=== PATIENT | male | born 1955 | race Caucasian/White ===

== ENCOUNTER → 2018-02-08 09:29 | Outpatient (CLI) | payer OTHER, SELFPAY ==
[2018-02-09 11:20] LABS: PSA, Free 1.14 ng/mL; PSA, Free % 15.2 % (.); PSA, Total Ultrasensitive 7.5 ng/mL (0.0-4.0)
== END ==
PROVIDERS: Family Provider Family Medicine; PCP Family Medicine; Visit Provider Nurse Practitioner Adult Health
DX: R97.20 Elevated prostate specific antigen [PSA] (principal)
CPT/HCPCS: 36415; 84153; 84154

== ENCOUNTER → 2018-04-06 13:02 | Outpatient (CLI) | payer OTHER, SELFPAY ==
--- NOTE | 2018-04-06 13:33 | RAD_ITS ---
STUDY: X-RAY - LEFT HAND REASON FOR EXAM: Male, 62 years old. Arthritis TECHNIQUE: 2 view(s) of the hand. COMPARISON: None. FINDINGS: The mid shaft of the fourth proximal phalanx is partially obscured by a ring. There are mild arthritic changes of the first interphalangeal joint and first metacarpophalangeal joint. The remaining osseous structures and articular surfaces of the left hand appear within normal limits. RAD/Hand 2 Views IMPRESSION: Mild arthritic changes of the first interphalangeal joint and first metacarpophalangeal joint. Electronically Signed: Konstantin Vega MD at 22:33 EDT , Service support ,
--- NOTE | 2018-04-06 13:33 | RAD_ITS ---
STUDY: X-RAY - RIGHT HAND REASON FOR EXAM: Male, 62 years old. Arthritis TECHNIQUE: 2 view(s) of the hand. COMPARISON: None. FINDINGS: There are mild arthritic changes of the first metacarpophalangeal joint and first interphalangeal joint. The remaining osseous structures and articular surfaces of the right hand appear within normal limits. Soft tissues are unremarkable. RAD/Hand 2 Views IMPRESSION: Mild arthritic changes of the first metacarpophalangeal joint and first interphalangeal joint. Electronically Signed: Konstantin Vega MD at 22:31 EDT , Service support ,
--- NOTE | 2018-04-06 13:34 | RAD_ITS ---
STUDY: X-RAY - LEFT FOOT CLINICAL: Male, 62 years old. Arthritis TECHNIQUE: 2 view(s) of the foot. COMPARISON: None. FINDINGS: There is minimal bunion formation of the first metatarsal head with mild hallux valgus deformity of the first metatarsophalangeal joint. There is a tiny plantar aspect calcaneal spur. Arterial calcifications are noted in the left foot and ankle. RAD/Foot 2 Views IMPRESSION: Minimal widening formation of the first metatarsal head with mild hallux valgus deformity of the first metatarsophalangeal joint. Tiny plantar aspect calcaneal spur. Arterial calcifications are noted in the left foot and ankle. The remaining osseous structures and articular surfaces of the left foot appear within normal limits. Electronically Signed: Konstantin Vega MD at 22:36 EDT , Service support ,
--- NOTE | 2018-04-06 13:34 | RAD_ITS ---
STUDY: X-RAY CHEST REASON FOR EXAM: Male, 62 years old. Dyspnea, arthritis TECHNIQUE: PA and lateral views of the chest. COMPARISON: None. FINDINGS: There is left basilar pleural reaction/fibrosis. There is no evidence of infiltrate or atelectasis. Normal size heart. Normal mediastinum and shital. Normal visualized pulmonary arteries. Normal visualized aortic arch and descending thoracic aorta. There is demineralization of the osseous structures. Normal visualized ribs, clavicles, and shoulders. There is no demonstrated abnormality of the visualized soft tissue structures of the upper abdomen. RAD/Chest PA and Lateral IMPRESSION: Left basilar pleural reaction/fibrosis. Generalized osteopenia. Electronically Signed: Konstantin Vega MD at 22:17 EDT , Service support ,
--- NOTE | 2018-04-06 13:34 | RAD_ITS ---
STUDY: X-RAY - RIGHT FOOT CLINICAL: Male, 62 years old. Arthritis TECHNIQUE: 2 view(s) of the foot. COMPARISON: None. FINDINGS: There is mild bunion formation of the first metatarsal head with mild hallux valgus deformity of the first metatarsophalangeal joint. There are mild arthritic changes of the first interphalangeal joint. The remaining osseous structures and articular surfaces of the right foot appear within normal limits. Arterial calcifications are noted in the right foot and ankle. RAD/Foot 2 Views IMPRESSION: Mild bunion formation of the first metatarsal head with mild hallux valgus deformity of the first metatarsophalangeal joint. Mild arthritic changes of the first interphalangeal joint. Electronically Signed: Konstantin Vega MD at 22:34 EDT , Service support ,
[2018-04-06 13:40] LABS: Erythrocyte Sedimentation Rate 15 mm/hr (0-20)
[2018-04-06 13:44] LABS: Absolute Lymphocyte Count 1.31 X10^3/ul (0.83-4.51); Absolute Neutrophil Count 3.7 X10^3/uL (2.0-7.7); Basophil# 0.05 X10^3/uL; Basophil% 0.8 % (0-1); Eosinophil# 0.45 X10^3/uL; Eosinophils% 7.6 % (0-5); Hematocrit 42.6 % (40-54); Hemoglobin 13.9 g/dl (13.0-16.5); Lymphocyte # 1.31 X10^3/ul (4.0); Lymphocyte % 22.1 % (19-41); Mean Corp Hgb Conc 32.6 g/gl (32-36); Mean Corpuscular Volume 88.9 fL (80-94); Mean Platelet Vol. 9.6 fl (6.2-12.0); Monocyte# 0.43 X10^3/uL; Monocyte% 7.3 % (0-10); Neutrophil # 3.67 X10^3/uL (2.7-7.7); POSITIVE COUNT NO; POSITIVE DIFFERENTIAL NO; POSITIVE MORPHOLOGY NO; Platelet Count 204 K/mm3 (150-450); RBC Distribution Width CV 13.1 % (11.6-14.6); RBC Distribution Width SD 42.1 fl (35.1-43.9); Red Blood Count 4.79 M/mm3 (4.6-6.2); White Blood Count 5.9 K/mm3 (4.4-11.0)
[2018-04-06 14:06] LABS: AST(SGOT) 18 U/L (15-37); Alanine Aminotransfer ALT/SGPT 33 U/L (16-61); Albumin, Serum 3.2 g/dL (3.2-5.0); Alkaline Phosphatase 68 U/L (45-117); Bilirubin, Direct 0.17 mg/dL (0.00-0.30); Creatinine, Serum 1.11 mg/dL (0.70-1.30); EST Glomerular Filtration Rate 72 mL/min (>60); Est Glom Filt Rate - Afr Amer 87 mL/min (>60); Globulin 3.8 g/dL (2.2-4.2); Rheumatoid Factor < 10.0 IU/mL (<15)
[2018-04-07 14:07] LABS: ANTINUCLEAR ANTIBODIES DIRECT Positive (Negative); Anti-Centromere B Ab <0.2 AI (0.0-0.9); Anti-Chromatin <0.2 AI (0.0-0.9); Anti-Jo <0.2 AI (0.0-0.9); Anti-Scleroderma-70 AB <0.2 AI (0.0-0.9); RNP Ab 0.2 AI (0.0-0.9); SJOGREN'S Anti-SS-A test 6.6 AI (0.0-0.9); SJOGREN'S Anti-SS-B test < 0.2 AI (0.0-0.9); Smith Ab <0.2 AI (0.0-0.9)
[2018-04-08 16:25] LABS: CCP IgG Antibodies > 250 units (0-19)
[2018-04-08 16:33] LABS: Anti-dsDNA Ab <1 IU/mL (0-9)
== END ==
PROVIDERS: Family Provider Family Medicine; PCP Family Medicine
DX: M05.9 Rheumatoid arthritis with rheumatoid factor, unspecified (principal); R76.0 Raised antibody titer; R06.00 Dyspnea, unspecified; Z79.899 Other long term (current) drug therapy
CPT/HCPCS: 36415; 71046; 73120; 73620; 80076; 82565; 85025; 85652; 86038; 86140; 86200; 86225; 86235; 86431

== ENCOUNTER → 2018-07-05 12:40 | Outpatient (CLI) | payer OTHER, SELFPAY ==
--- NOTE | 2018-07-05 12:47 | CT_ITS ---
STUDY: CT CHEST WITHOUT CONTRAST REASON FOR EXAM: Male, 62 years old. Rheumatoid arthritis. RADIATION DOSAGE (If Supplied By Facility): CTDIvol = ( 20.72 ) mGy, DLP = ( 669.64 ) mGycm TECHNIQUE: Transaxial imaging was performed without the administration of intravenous contrast material. Multiplanar coronal and sagittal images were reformatted. Individualized dose optimization techniques were used for this CT. COMPARISON: Chest, April 06, 2018. FINDINGS: The lungs are well-expanded. There is linear scarring at the left lung base. There is a small left pleural effusion and atelectasis. There is no demonstrated pleural abnormality. Normal heart and pericardium. There are calcifications of the coronary arteries. Normal mediastinum. Normal hilar regions. Normal unenhanced pulmonary arteries. Normal aorta arch and descending thoracic aorta. There are multi-level degenerative changes of the thoracic spine. There is hepatosplenomegaly. There are gallstones within the gallbladder. CT/Chest without Contrast IMPRESSION: 1. Small left pleural effusion with left basilar atelectasis. 2. Coronary artery calcifications. 3. Hepatosplenomegaly. 4. Degenerative changes of the thoracic spine. Electronically Signed: William Traore DO at 23:25 EST Tel [phone], Service support ,
--- OUTSIDE RECORDS SUMMARY | 2018-09-06 16:21 | XMS RPT_ITS ---
:1955 Author Organization OHIP Care Team Providers Name Role Phone Tereza Mills Attending Unavailable Tereza Mills Referring Unavailable NEVA BRIONES Primary Care Unavailable HARSH HERNANDEZ Attending Unavailable HARSH HERNANDEZ Referring Unavailable NEVA BRIONES Primary Care Unavailable HARSH HERNANDEZ Consulting Unavailable HARSH HERNANDEZ Attending Unavailable HARSH HERNANDEZ Referring Unavailable NEVA BRIONES Primary Care Unavailable CHAIM HIRSCH, DR. NEVA Saunders Attending Unavailable CHAIM HIRSCH, DR. NEVA Saunders Primary Care Unavailable HUBERT SAGE MD. Attending Unavailable CHAIM HIRSCH, DR. NEVA Saunders Primary Care Unavailable Hubert Sage Attending Unavailable PROBLEMS PROBLEMS DATE TYPE CONDITION / CODE ATTENDING STATUS SOURCE 05/19/2018 Admitting Unknown / Hubert Sage Active [facility] Medical diagnosis UNK(Unknown) [facility] [place] Repository 04/07/2018 Unknown M05.9 - Rheumatoid HARSH HERNANDEZ Active [facility] arthritis with Community rheumatoid factor, Hospital unspecified / Repository M05.9(ICD-10) 04/07/2018 Unknown Z79.899 - Other long HARSH HERNANDEZ Active [facility] term (current) drug Community therapy / Hospital Z79.899(ICD-10) Repository 04/07/2018 Unknown R76.0 - Raised HARSH HERNANDEZ Active [facility] antibody titer / Community R76.0(ICD-10) Hospital Repository 12/30/2017 Admitting Essential (primary) CHAIM HIRSCH, Active [facility] Diagnosis hypertension / DR. NEVA Stapleton I10(ICD-10) Repository 12/30/2017 Admitting Mixed hyperlipidemia CHAIM HIRSCH, Active [facility] Diagnosis / E78.2(ICD-10) DR. NEVA Stapleton Repository 12/30/2017 Admitting ELEVATED PROSTATE CHAIM HIRSCH, Active [facility] Diagnosis SPECIFIC ANTIGEN DR. NEVA Stapleton (PSA) / Repository R97.20(ICD-10) 12/30/2017 Admitting Rheumatoid CHAIM HIRSCH, Active [facility] Diagnosis arthritis, DR. NEVA Stapleton unspecified / Repository M06.9(ICD-10) PROCEDURES PROCEDURES No Procedure Records FoundRESULTS RESULTS CHEST WITHOUT Observed: 07/05/2018 Status: F Source: [place] CONTRAST 12:47 PM [facility] REPOSITORY [facility] Imaging Services [address] [place] [address] Chest without Contrast MR#: [id number] Acct: [id number] Name: BERNICE PRECIADO Deanna Rep #: [id number] : 1955 M 62 From: William Traore DO PCP: Neva Briones MD Status: REG CLI Study: Chest without Contrast Date of Exam: 07/05/18 Exam# [id number] Ordering Dr: HUBERT SAGE STUDY: CT CHEST WITHOUT CONTRAST REASON FOR EXAM: Male, 62 years old. Rheumatoid arthritis. RADIATION DOSAGE (If Supplied By Facility): CTDIvol = ( 20.72 ) mGy, DLP = ( 669.64 ) mGycm TECHNIQUE: Transaxial imaging was performed without the administration of intravenous contrast material. Multiplanar coronal and sagittal images were reformatted. Individualized dose optimization techniques were used for this CT. COMPARISON: Chest, April 06, 2018. FINDINGS: The lungs are well-expanded. There is linear scarring at the left lung base. There is a small left pleural effusion and atelectasis. There is no demonstrated pleural abnormality. Normal heart and pericardium. There are calcifications of the coronary arteries. Normal mediastinum. Normal hilar regions. Normal unenhanced pulmonary arteries. Normal aorta arch and descending thoracic aorta. There are multi-level degenerative changes of the thoracic spine. There is hepatosplenomegaly. There are gallstones within the gallbladder. CT/Chest without Contrast IMPRESSION: 1. Small left pleural effusion with left basilar atelectasis. 2. Coronary artery calcifications. 3. Hepatosplenomegaly. 4. Degenerative changes of the thoracic spine. Electronically Signed: William Traore DO at 23:25 EST Tel [phone], Service support , CC: Neva Briones MD; HUBERT SAGE Warehouse Hand: Signed COMPL C3 Collected: 05/19/2018 Status: F Source: [facility] 9:07 AM [facility] REPOSITORY TYPE CODE TESTS RESULT OUT OF RANGE REFERENCE UNITS LAB L750.84694 82-167 mg/dL High COMPL C3 173 Result Comment: Performed At: [facility] [address] [id number] Eva Lewis PhD [id number] Performed By: #### L750.64086 #### [facility] [id number] DNA DLB STR AAB Collected: 05/19/2018 Status: F Source: [facility] 9:07 AM [facility] REPOSITORY TYPE CODE TESTS RESULT OUT OF RANGE REFERENCE UNITS LAB L700.22150 0-9 IU/mL Normal DNA DLB < 1 STR AAB Result Comment: Negative <5 Equivocal 5 - 9 Positive >9 Performed At: [facility] [address] [id number] Eva Lewis PhD [id number] Performed By: #### L700.79809, L750.61322, L750.15343 #### [facility] [address] [address] CARDIOLIPIN AB Collected: 05/19/2018 Status: F Source: [facility] 9:07 AM [facility] TYPE CODE TESTS RESULT OUT OF RANGE REFERENCE UNITS LAB L750.17417 0-14 GPL U/mL CARDIOLIPIN Normal IGG <9 Result Comment: Negative: <15 Indeterminate: 15 - 20 Low-Med Positive: >20 - 80 High Positive: >80 LAB L750.26294 0-11 APL U/mL CARDIOLIPIN Normal IGA <9 Result Comment: Negative: <12 Indeterminate: 12 - 20 Low-Med Positive: >20 - 80 High Positive: >80 LAB L750.94117 0-12 MPL U/mL CARDIOLIPIN Normal IGM <9 Result Comment: Negative: <13 Indeterminate: 13 - 20 Low-Med Positive: >20 - 80 High Positive: >80 Performed By: #### L700.92096, L750.77364, L750.76734 #### [facility] [address] [address] COMPL C4 Collected: 05/19/2018 Status: F Source: [facility] 9:07 AM [facility] REPOSITORY TYPE CODE TESTS RESULT OUT OF RANGE REFERENCE UNITS LAB L750.80977 14-44 mg/dL Normal COMPL C4 22 Performed By: #### L700.06597, L750.02302, L750.19422 #### [facility] [address] [address] [id number] AB PNL Collected: 05/19/2018 Status: F Source: [facility] 9:07 AM [facility] REPOSITORY TYPE CODE TESTS RESULT OUT OF RANGE REFERENCE UNITS LAB L550.45200 0-20 Normal B2GPI IGG < 9 Result Comment: INFCE Result Units: GPI IgG units The reference interval reflects a 3SD or 99th percentile interval, which is thought to represent a potentially clinically significant result in accordance with the International Consensus Statement on the classification criteria for definitive antiphospholipid syndrome (APS). J Thromb Haem 2006;4:295-306. LAB L550.68456 0-32 Normal B2GPI IGM < 9 Result Comment: INFCE Result Units: GPI IgM units The reference interval reflects a 3SD or 99th percentile interval, which is thought to represent a potentially clinically significant result in accordance with the International Consensus Statement on the classification criteria for definitive antiphospholipid syndrome (APS). J Thromb Haem 2006;4:295-306. Performed At: [facility] [id number] Alvaro Tarango MD [id number] LAB L550.47550 0-25 Normal B2GPIA IGA < 9 Result Comment: INFCE Result Units: GPI IgA units The reference interval reflects a 3SD or 99th percentile interval, which is thought to represent a potentially clinically significant result in accordance with the International Consensus Statement on the classification criteria for definitive antiphospholipid syndrome (APS). J Thromb Haem 2006;4:295-306. Performed By: #### L550.86679 #### [facility] [address] # [phone] CHEST PA AND LATERAL Observed: 04/06/2018 Status: F Source: [place] 1:34 PM [facility] REPOSITORY [facility] Imaging Services [address] [place] [address] Chest PA and Lateral MR#: [id number] Acct: [id number] Name: BERNICE PRECIADO Rep #: [id number] : 1955 M 62 From: Konstantin Vega MD PCP: Neva Briones MD Status: REG CLI Study: Chest PA and Lateral Date of Exam: 04/06/18 Exam# [id number] Ordering Dr: HUBERT SAGE STUDY: X-RAY CHEST REASON FOR EXAM: Male, 62 years old. Dyspnea, arthritis TECHNIQUE: PA and lateral views of the chest. COMPARISON: None. FINDINGS: There is left basilar pleural reaction/fibrosis. There is no evidence of infiltrate or atelectasis. Normal size heart. Normal mediastinum and shital. Normal visualized pulmonary arteries. Normal visualized aortic arch and descending thoracic aorta. There is demineralization of the osseous structures. Normal visualized ribs, clavicles, and shoulders. There is no demonstrated abnormality of the visualized soft tissue structures of the upper abdomen. RAD/Chest PA and Lateral IMPRESSION: Left basilar pleural reaction/fibrosis. Generalized osteopenia. Electronically Signed: Konstantin Vega MD at 22:17 EDT , Service support , CC: Neva Briones MD; HUBERT SAGE Warehouse Hand: Signed HAND 2 VIEWS Observed: 04/06/2018 Status: F Source: [place] 1:34 PM [facility] REPOSITORY [facility] Imaging Services [address] [place] [address] Hand 2 Views MR#: [id number] Acct: [id number] Name: BERNICE PRECIADO Rep #: [id number] : 1955 M 62 From: Konstantin Vega MD PCP: Neva Briones MD Status: REG CLI Study: Hand 2 Views Date of Exam: 04/06/18 Exam# [id number] Ordering Dr: HUBERT SAGE STUDY: X-RAY - RIGHT HAND REASON FOR EXAM: Male, 62 years old. Arthritis TECHNIQUE: 2 view(s) of the hand. COMPARISON: None. FINDINGS: There are mild arthritic changes of the first metacarpophalangeal joint and first interphalangeal joint. The remaining osseous structures and articular surfaces of the right hand appear within normal limits. Soft tissues are unremarkable. RAD/Hand 2 Views IMPRESSION: Mild arthritic changes of the first metacarpophalangeal joint and first interphalangeal joint. Electronically Signed: Konstantin Vega MD at 22:31 EDT , Service support , CC: Neva Briones MD; HUBERT SAGE Warehouse Hand: Signed HAND 2 VIEWS Observed: 04/06/2018 Status: F Source: [place] 1:34 PM [facility] REPOSITORY [facility] Imaging Services [address] [place] [address] Hand 2 Views MR#: [id number] Acct: [id number] Name: BERNICE PRECIADO Rep #: [id number] : 1955 M 62 From: Konstantin Vega MD PCP: Neva Briones MD Status: REG CLI Study: Hand 2 Views Date of Exam: 04/06/18 Exam# [id number] Ordering Dr: HUBERT SAGE STUDY: X-RAY - LEFT HAND REASON FOR EXAM: Male, 62 years old. Arthritis TECHNIQUE: 2 view(s) of the hand. COMPARISON: None. FINDINGS: The mid shaft of the fourth proximal phalanx is partially obscured by a ring. There are mild arthritic changes of the first interphalangeal joint and first metacarpophalangeal joint. The remaining osseous structures and articular surfaces of the left hand appear within normal limits. RAD/Hand 2 Views IMPRESSION: Mild arthritic changes of the first interphalangeal joint and first metacarpophalangeal joint. Electronically Signed: Konstantin Vega MD at 22:33 EDT , Service support , CC: Neva Briones MD; HUBERT SAGE Warehouse Hand: Signed FOOT 2 VIEWS Observed: 04/06/2018 Status: F Source: [place] 1:34 PM [facility] REPOSITORY [facility] Imaging Services [address] [place] [address] Foot 2 Views MR#: [id number] Acct: [id number] Name: BERNICE PRECIADO Rep #: [id number] : 1955 M 62 From: Konstantin Vega MD PCP: Neva Briones MD Status: REG CLI Study: Foot 2 Views Date of Exam: 04/06/18 Exam# [id number] Ordering Dr: HUBERT SAGE STUDY: X-RAY - RIGHT FOOT CLINICAL: Male, 62 years old. Arthritis TECHNIQUE: 2 view(s) of the foot. COMPARISON: None. FINDINGS: There is mild bunion formation of the first metatarsal head with mild hallux valgus deformity of the first metatarsophalangeal joint. There are mild arthritic changes of the first interphalangeal joint. The remaining osseous structures and articular surfaces of the right foot appear within normal limits. Arterial calcifications are noted in the right foot and ankle. RAD/Foot 2 Views IMPRESSION: Mild bunion formation of the first metatarsal head with mild hallux valgus deformity of the first metatarsophalangeal joint. Mild arthritic changes of the first interphalangeal joint. Electronically Signed: Konstantin Vega MD at 22:34 EDT , Service support , CC: Neva Briones MD; HUBERT SAGE Warehouse Hand: Signed FOOT 2 VIEWS Observed: 04/06/2018 Status: F Source: [place] 1:34 PM [facility] REPOSITORY [facility] Imaging Services [address] [place] [address] Foot 2 Views MR#: [id number] Acct: [id number] Name: BERNICE PRECIADO Rep #: [id number] : 1955 M 62 From: Konstantin Vega MD PCP: Neva Briones MD Status: REG CLI Study: Foot 2 Views Date of Exam: 04/06/18 Exam# [id number] Ordering Dr: HUBERT SAGE STUDY: X-RAY - LEFT FOOT CLINICAL: Male, 62 years old. Arthritis TECHNIQUE: 2 view(s) of the foot. COMPARISON: None. FINDINGS: There is minimal bunion formation of the first metatarsal head with mild hallux valgus deformity of the first metatarsophalangeal joint. There is a tiny plantar aspect calcaneal spur. Arterial calcifications are noted in the left foot and ankle. RAD/Foot 2 Views IMPRESSION: Minimal widening formation of the first metatarsal head with mild hallux valgus deformity of the first metatarsophalangeal joint. Tiny plantar aspect calcaneal spur. Arterial calcifications are noted in the left foot and ankle. The remaining osseous structures and articular surfaces of the left foot appear within normal limits. Electronically Signed: Konstantin Vega MD at 22:36 EDT , Service support , CC: Neva Briones MD; HUBERT SAGE Warehouse Hand: Signed ERYTHROCYTE SED RATE Collected: 04/06/2018 Status: F Source: [place] 1:08 PM [facility] REPOSITORY TYPE CODE TESTS RESULT OUT OF RANGE REFERENCE UNITS LAB L102.0000 0-20 mm/hr Normal SED RATE 15 Performed By: #### L101.9900, L100.0100 #### [facility] [address] [place], [place], [address] CBC W/DIFF, AUTOMATED Collected: 04/06/2018 Status: F Source: [place] 1:08 PM [facility] REPOSITORY TYPE CODE TESTS RESULT OUT OF RANGE REFERENCE UNITS LAB L100.1000 4.4-11.0 K/mm3 Normal WBC 5.9 LAB L100.1200 4.6-6.2 M/mm3 Normal RBC 4.79 LAB L100.1300 13.0-16.5 g/dl Normal HGB 13.9 LAB L100.1400 40-54 % Normal HCT 42.6 LAB L100.1500 80-94 fL Normal MCV 88.9 LAB L100.1600 27.0-32.0 pg Normal MCH 29.0 LAB L100.1700 32-36 g/gl Normal MCHC 32.6 LAB L100.1810 11.6-14.6 % Normal RDW CV 13.1 LAB L100.1820 35.1-43.9 fl Normal RDW SD 42.1 LAB L100.1900 150-450 K/mm3 Normal PLT 204 LAB L100.2000 6.2-12.0 fl Normal MPV 9.6 LAB L100.2100 47-70 % Normal NEUT% 62.0 LAB L100.2200 19-41 % Normal LY% 22.1 LAB L100.2300 0-10 % Normal MONO% 7.3 LAB L100.2400 0-5 % High EO% 7.6 LAB L100.2500 0-1 % Normal BASO% 0.8 LAB L100.2550 0.0-0.9 % Normal IM GRAN % 0.200 Result Comment: IG% - Immature Granulocytes (promyelocytes, myelocytes and metamyelocytes) > 1% indicates that a LEFT SHIFT is Present. LAB L100.2620 2.0-7.7 X10 3/uL Normal Absolute Neut 3.7 LAB L100.2720 0.83-4.51 X10 3/ul Normal Absolute Lymph 1.31 Performed By: #### L101.9900, L100.0100 #### [facility] [address] [place], [place], [id number] LIVER PROFILE Collected: 04/06/2018 Status: F Source: [place] 1:08 PM [facility] REPOSITORY TYPE CODE TESTS RESULT OUT OF RANGE REFERENCE UNITS LAB L501.1500 6.4-8.2 g/dL Normal T PROT 7.0 LAB L501.1800 3.2-5.0 g/dL Normal ALB 3.2 LAB L501.1950 2.2-4.2 g/dL Normal GLOB 3.8 LAB L501.4100 15-37 U/L Normal AST 18 LAB L501.4305 45-117 U/L Normal ALK P 68 LAB L501.4405 16-61 U/L Normal ALT 33 LAB L501.4600 0.20-1.00 mg/dL Normal T BILI 0.60 LAB L501.4700 0.00-0.30 mg/dL Normal D BILI 0.17 Performed By: #### L500.3400, L501.1105, L501.6710, L505.7010 #### [facility] [address] [place], [place], [id number] SERUM CREATININE AND Collected: 04/06/2018 Status: F Source: [place] GFR 1:08 PM [facility] REPOSITORY TYPE CODE TESTS RESULT OUT OF RANGE REFERENCE UNITS LAB L501.1100 0.70-1.30 mg/dL Normal 1.11 CREAT,SERUM Result Comment: The validity of the calculated GFR AND GFRAA in patients over 70 years has not been determined. Clinical correlation is essential. LAB L501.1110 >60 mL/min Normal EST GFR 72 Result Comment: Non- GFR Calc LAB L501.1115 >60 mL/min Normal EST GFR - AA 87 Result Comment: GFR Calc Performed By: #### L500.3400, L501.1105, L501.6710, L505.7010 #### [facility] [address] [place], [place], [id number] CRP Collected: 04/06/2018 Status: F Source: [place] 1:08 PM [facility] REPOSITORY TYPE CODE TESTS RESULT OUT OF RANGE REFERENCE UNITS LAB L501.6710 0.0-3.0 mg/L High 17.10 C-REACTIVE PROT Result Comment: C-Reactive Protein (CRP) provides useful information for the diagnosis, therapy and monitoring of inflammatory processes and associated diseases. For the evaluation of Relative Risk for Cardiovascular Disease, a High Sensitivity CRP (HSCRP) should be ordered. Performed By: #### L500.3400, L501.1105, L501.6710, L505.7010 #### [facility] [address] [place], [place], [address] RHEUMATOID FACTOR Collected: 04/06/2018 Status: F Source: [place] 1:08 PM [facility] REPOSITORY TYPE CODE TESTS RESULT OUT OF RANGE REFERENCE UNITS LAB L505.7010 <15 IU/mL Normal RHEUMATOID FAC < 10.0 Performed By: #### L500.3400, L501.1105, L501.6710, L505.7010 #### [facility] [address] [place], [place], [address] CCP IGG ANTIBODIES Collected: 04/06/2018 Status: F Source: [place] 1:08 PM [facility] REPOSITORY TYPE CODE TESTS RESULT OUT OF REFERENCE UNITS RANGE LAB L4600.0100 0-19 units High ANTI-CCP > 250 [id number] Result Comment: Negative <20 Weak positive 20 - 39 Moderate positive 40 - 59 Strong positive >59 Performed at: - [facility] [id number] Bearing Maker: Bart Sandy MD, Phone: [phone] Performed By: #### L4600.0100 #### [facility] (refer to report for specific site) refer to report for address and phone number NEVA W/ REFLEX MULT Collected: 04/06/2018 Status: F Source: [facility] 1:08 PM [facility] REPOSITORY TYPE CODE TESTS RESULT OUT OF RANGE REFERENCE UNITS LAB L3100.5475 Negative High Positive NEVA-DIRECT LAB L3100.5500 0-9 IU/mL <1 Normal dsDNA AB Result Comment: Negative <5 Equivocal 5 - 9 Positive >9 LAB L3100.9200 0.0-0.9 AI Anti-SS-A High 6.6 LAB L3100.9300 0.0-0.9 AI Anti-SS-B Normal < 0.2 LAB L3410.0427 0.0-0.9 AI ANTICHROMATIN Normal <0.2 LAB L3410.0500 0.0-0.9 AI ANTI-NICOLE Normal <0.2 LAB L3410.0700 0.0-0.9 AI ANTISCLER Normal <0.2 LAB L3410.1200 0.0-0.9 AI INDUSTRIAL GREEN SYSTEMS DESIGNER Ab Normal 0.2 LAB L3410.1300 0.0-0.9 AI REZA Ab Normal <0.2 LAB L3410.4010 0.0-0.9 AI ANTI-CENT B Normal <0.2 LAB L3410.4150 . COMMENT Normal Comment Result Comment: Autoantibody Disease Association Condition Frequency --------- Antinuclear Antibody, SLE, mixed connective Direct (NEVA-D) tissue diseases --------- dsDNA SLE 40 - 60% --------- Chromatin Drug induced SLE 90% SLE 48 - 97% --------- SSA (Ro) SLE 25 - 35% Sjogren's Syndrome 40 - 70% Lupus 100% --------- SSB (La) SLE 10% Sjogren's Syndrome 30% --------- Sm (anti-Reza) SLE 15 - 30% --------- INDUSTRI[employer]S DESIGNER Mixed Connective Tissue Disease 95% (U1 nRNP, SLE 30 - 50% anti-ribonucleoprotein) Polymyositis and/or Dermatomyositis 20% --------- Scl-70 (antiDNA Scleroderma (diffuse) 20 - 35% topoisomerase) Crest 13% --------- Nicole-1 Polymyositis and/or Dermatomyositis 20 - 40% --------- Centromere B Scleroderma - Crest variant 80% Performed at: [facility] [employer] [id number] Bearing Maker: Joshua Velasquez PhD, Phone: [phone] Performed By: #### L3100.5450 #### [facility] (refer to report for specific site) refer to report for address and phone number ANTINUCLEAR ANTIBODY, Collected: 04/06/2018 Status: F Source: [place] IFA 1:08 PM [facility] REPOSITORY TYPE CODE TESTS RESULT OUT OF RANGE REFERENCE UNITS LAB L3100.8000 Normal NEVA by IFA Result Comment: TEST RESULT LIMITS Antinuclear Antibodies, IFA Antinuclear Antibodies, IFA Positive Abnormal Negative <1:80 Borderline 1:80 Positive >1:80 Homogeneous Pattern 1:160 High Note: A positive NEVA result may occur in healthy individuals (low titer) or be associated with a variety of diseases. See interpretation chart which is not all inclusive: Pattern Antigen Detected Suggested Disease Association Homogeneous DNA(ds,ss), SLE - High titers Nucleosomes, Histones Drug-induced SLE Speckled Sm, IND[employer]S DESIGNER, SCL-70, SLE,MCTD,PSS (diffuse form), SS-A/SS-B Sjogrens Nucleolar SCL-70, PM-1/SCL High titers Scleroderma, PM/DM Centromere Centromere PSS (limited form) w/Crest syndrome variable Nuclear Dot [id number] Primary Biliary Cirrhosis Nuclear GP210, Primary Biliary Cirrhosis Membrane chichi A,B,C TESTING PERFORMED AT [facility]. ORIGINAL REPORT ON FILE IN LAB CONTAINS ADDITIONAL TEST SITE INFORMATION. Performed By: #### L3100.7950 #### [facility] (refer to report for specific site) refer to report for address and phone number PSA TOTAL+%FREE Collected: 02/08/2018 Status: F Source: [place] 9:37 AM [facility] REPOSITORY TYPE CODE TESTS RESULT OUT OF RANGE REFERENCE UNITS LAB L3110.0700 0.0-4.0 ng/mL High PSA, 7.5 TOTAL Result Comment: [facility] ECLIA methodology. According to the [employer], Serum PSA should decrease and remain at undetectable levels after radical prostatectomy. The AUA defines biochemical recurrence as an initial PSA value 0.2 ng/mL or greater followed by a subsequent confirmatory PSA value 0.2 ng/mL or greater. Values obtained with different assay methods or kits cannot be used interchangeably. Results cannot be interpreted as absolute evidence of the presence or absence of malignant disease. LAB L3110.0800 N/A ng/mL Normal PSA, 1.14 FREE Result Comment: [facility] ECLIA methodology. LAB L3110.0900 . % Normal PSA, FREE 15.2 % Result Comment: The table below lists the probability of prostate cancer for men with non-suspicious MALACHI results and total PSA between 4 and 10 ng/mL, by patient age (Sean et al, LILIBETH 1998, 279:1542). % Free PSA 50-64 yr 65-75 yr 0.00-10.00% 56% 55% 10.01-15.00% 24% 35% 15.01-20.00% 17% 23% 20.01-25.00% 10% 20% >25.00% 5% 9% Please note: Sean et al did not make specific recommendations regarding the use of percent free PSA for any other population of men. Performed at: - [facility] [address] [id number] Bearing Maker: Joshua Velasquez PhD, Phone: [phone] Performed By: #### L3110.0500 #### [facility] (refer to report for specific site) refer to report for address and phone number CBC Collected: 12/30/2017 Status: F Source: [facility] 1:49 PM [facility] REPOSITORY TYPE CODE TESTS RESULT OUT OF REFERENCE UNITS RANGE LAB WBC(LOINC) 4.60-10.80 10 3/mcL WBC 7.30 LAB RBCCT(LOINC 4.04-6.13 10 6/mcL ) RBC 5.26 LAB HGB(LOINC) 14.0-18.0 G/dL Hgb 15.4 LAB HCT(LOINC) 42.0-52.0 % Hct 45.8 LAB MCV(LOINC) 80.0-94.0 fL MCV 87.0 LAB MCH(LOINC) 27.0-31.2 pg MCH 29.3 LAB MCHC(LOINC) 31.8-35.4 G/dL MCHC 33.7 LAB RDW(LOINC) 11.5-14.5 % RDW 14.1 LAB PLT(LOINC) 130-400 10 3/mcL Platelet 206 LAB MPV(LOINC) 7.4-10.4 fL MPV 8.3 Performed By: #### CBC, ADIFF, ANEU, LIPID, CMP, GFR #### [place] [id number] [place], [place] [address] #### ESR, PSA #### [address] [address] .AUTO DIFF Collected: 12/30/2017 Status: F Source: [facility] 1:49 PM [facility] REPOSITORY TYPE CODE TESTS RESULT OUT OF REFERENCE UNITS RANGE LAB JR(LOINC) 37.0-80.0 % Neutrophil % 63.8 LAB LYM(LOINC) 10.0-50.0 % Lymphocyte % 20.7 LAB MON(LOINC) 1.7-13.0 % Monocyte % 8.8 LAB EO(LOINC) 0.0-7.0 % Eosinophil % 5.8 LAB BAS(LOINC) 0.0-2.5 % Basophil % 0.9 LAB ABLYM(LOIN 0.77-3.85 10 3/mcL C) Lymphocyte, 1.50 Absolute LAB NEREIDA(LOINC 0.15-1.00 10 3/mcL ) Monocyte, 0.60 Absolute LAB AEOS(LOINC 0.00-0.40 10 3/mcL ) Eosinophil, 0.40 Absolute LAB ABAS(LOINC 0.00-0.19 10 3/mcL ) Basophil, 0.10 Absolute Performed By: #### CBC, ADIFF, ANEU, LIPID, CMP, GFR #### [place] [id number] [place], [place] [address] #### ESR, PSA #### [facility] [address] [place] [id number] .NEUABS Collected: 12/30/2017 Status: F Source: [facility] 1:49 PM [facility] REPOSITORY TYPE CODE TESTS RESULT OUT OF REFERENCE UNITS RANGE LAB ANEU(LOINC) 2.85-6.16 10 3/mcL Neutrophil, 4.70 Absolute Performed By: #### CBC, ADIFF, ANEU, LIPID, CMP, GFR #### [address] [place], [place] [address] #### ESR, PSA #### [facility] [address] [place] [id number] LIPID Collected: 12/30/2017 Status: F Source: [facility] 1:49 PM [facility] REPOSITORY TYPE CODE TESTS RESULT OUT OF REFERENCE UNITS RANGE LAB CHOL(LOINC 131-200 mg/dL ) Cholesterol 200 Result Comment: Cholesterol Reference Interval: Less than 200 Desirable 200-239 Borderline high risk 240 and above High risk LAB TRIG(LOINC) 40-150 mg/dL Triglycerides 113 Result Comment: Triglyceride Reference Interval: Less than 150 Normal 150-199 Borderline high risk 200-499 High risk 500 or higher Very high risk LAB HD(LOINC) 35-90 mg/dL HDL Cholesterol 43 Result Comment: HDL Reference Interval: Less than 40 Low - high risk 60 or above Optimal/lowers risk LAB LDL(LOINC) 0-130 mg/dL LDL High Cholesterol 134 Result Comment: LDL is a calculated result and requires a 12-hr fast. LDL Reference Interval: Less than 100 Optimal 100-129 Near or above optimal 130-159 Borderline high risk 160-189 High risk 190 and above Very high risk Performed By: #### CBC, ADIFF, ANEU, LIPID, CMP, GFR #### [address] [place], [place] [address] #### ESR, PSA #### [address] [id number] CMP Collected: 12/30/2017 Status: F Source: [facility] 1:49 PM [facility] REPOSITORY TYPE CODE TESTS RESULT OUT OF REFERENCE UNITS RANGE LAB GLU(LOINC) 80-115 mg/dL Glucose Level 84 LAB NA(LOINC) 136-146 mEq/L Sodium Level 140 LAB K(LOINC) 3.5-5.1 mEq/L Potassium Level 4.7 LAB CL(LOINC) 98-107 mEq/L Chloride 102 LAB CO2(LOINC) 23-31 mEq/L CO2 27 LAB EBAL(LOINC mEq/L ) Electrolyte Balance 11.0 LAB BUN(LOINC) 7.0-18.0 mg/dL BUN 14.7 LAB CRE(LOINC) 0.6-1.2 mg/dL Creatinine Lvl (s) 1.0 LAB BC(LOINC) 7-27 ratio BUN/Creatinine 15 Ratio LAB CA(LOINC) 8.4-10.2 mg/dL Calcium Lvl 9.6 LAB PROT(LOINC 6.0-8.3 G/dL ) Total Protein 7.3 LAB ALB(LOINC) 3.4-4.8 G/dL Albumin Level 4.4 LAB GLB(LOINC) G/dL Globulin 2.9 LAB AG(LOINC) 1.1-2.5 ratio A/G Ratio 1.5 LAB BILT(LOINC 0.2-1.0 mg/dL ) Bili Total 0.8 LAB AP(LOINC) 40-135 IU/L Alk Phos 66 LAB AST(LOINC) 10-40 IU/L AST/SGOT 25 LAB ALT(LOINC) 10-35 IU/L ALT/SGPT 30 Performed By: #### CBC, ADIFF, ANEU, LIPID, CMP, GFR #### [facility] [address] #### ESR, PSA #### [address] [address] .GFR Collected: 12/30/2017 Status: F Source: [facility] 1:49 PM [facility] REPOSITORY TYPE CODE TESTS RESULT OUT OF REFERENCE UNITS RANGE LAB GFRAA(LOINC ml/min/1.73 ) sqm GFR >60 Danish Result Comment: GFR Population mean for , Non- Americans Ages 20-29 = 116 mL/min/1.73 sq.m. Ages 30-39 = 107 mL/min/1.73 sq.m. Ages 40-49 = 99 mL/min/1.73 sq.m. Ages 50-59 = 93 mL/min/1.73 sq.m. Ages 60-69 = 85 mL/min/1.73 sq.m. Ages 70+ = 75 mL/min/1.73 sq.m. Chronic Kidney Disease: Less than 60 mL/min/1.73 square meters End Stage Renal Disease: Less than 15 mL/min/1.73 square meters LAB GFRNO(LOINC) ml/min/1.73sqm GFR Non- >60 Result Comment: GFR Population mean for , Non- Americans Ages 20-29 = 116 mL/min/1.73 sq.m. Ages 30-39 = 107 mL/min/1.73 sq.m. Ages 40-49 = 99 mL/min/1.73 sq.m. Ages 50-59 = 93 mL/min/1.73 sq.m. Ages 60-69 = 85 mL/min/1.73 sq.m. Ages 70+ = 75 mL/min/1.73 sq.m. Chronic Kidney Disease: Less than 60 mL/min/1.73 square meters End Stage Renal Disease: Less than 15 mL/min/1.73 square meters Performed By: #### CBC, ADIFF, ANEU, LIPID, CMP, GFR #### [place] [address] [address] #### ESR, PSA #### [address] [address] ESR Collected: 12/30/2017 Status: F Source: [facility] 1:49 PM [facility] REPOSITORY TYPE CODE TESTS RESULT OUT OF REFERENCE UNITS RANGE LAB ESR(LOINC) 0-20 mm/hr Erythrocyte Sed Rate 4 Performed By: #### CBC, ADIFF, ANEU, LIPID, CMP, GFR #### [address] [place], [place] [address] #### ESR, PSA #### [facility] [address] [place] [address] PSA Collected: 12/30/2017 Status: F Source: [facility] 1:49 PM [facility] REPOSITORY TYPE CODE TESTS RESULT OUT OF REFERENCE UNITS RANGE LAB PSA(LOINC) 0.02-4.00 ng/mL High Prostate 8.39 Specific Antigen Performed By: #### CBC, ADIFF, ANEU, LIPID, CMP, GFR #### [address] [place], [place] [address] #### ESR, PSA #### [address] [address] ALLERGIES ALLERGIES No Allergies Records FoundENCOUNTERS ENCOUNTERS ADMIT/DISCHARGE ACCOUNT NUMBER ADMITTING ENCOUNTER LOCATION SOURCE CLASS 07/05/2018 [id number] [facility] ding:CT Repository 06/02/2018/06/02/20 [id number] Ambulatory ABuilding:[address] Repository 05/19/2018 [id number] [place] [facility] [place] ng:CAMI 04/06/2018 [id number] [facility] ding:LAB Repository 02/08/2018 [id number] [facility] ding:LAB Repository 12/30/2017/01/04/20 [id number] Ambulatory [address] ding:[facility] Repository PAYERS PAYERS ENCOUNTER GUARANTOR PAYER SUBSCRIBER SOURCE 07/05/2018 BERNICE Huerta Primary BERNICE Boone [id number] [place] Insurance:HEALTH PLAN MAYHEWDOB: [facility] [id number] Number: Repository [id number]: [phone] [id number] [phone] () Date: [place], [place] [address]WG: 07/05/2018 Secondary NOT GIVENUNK Mely Insurance:SELF PAY [facility] Number: Effective Repository Date:2018-06-16 06/02/2018 BERNICE P Primary BERNICE Huerta [facility] MAYWDOB: Insurance:HEALTH PLAN MAYWDOB: [facility] [id number] [facility] INSCOPol[facility] Number: [id number] Repository [address] [place] [address] [id number] [address] [place] [address], [email or web address] Date:2018-05-31 33522Uct: OOMINTERNET.[facility] [id number] el: [phone]) Name:[id number] [place] () [facility] [phone] () ()Tel: [phone]) [place], [place] [phone] () [id number]: 05/19/2018 BERNICE P Primary Insurance:THE BERNICE Huerta [facility] [id number] [place] Number: Repository [place], [place] [id number]: [phone]) Date:[id number] [phone] () L [id number] [place], [place] [address]CL: 04/06/2018 BERNICE P Primary BERNICE P B[place]l [id number] [place] Insurance:HEALTH PLAN WDOB: [facility] [id number] [facility]: Repository [id number]: 330 [id number] [phone] () Date: [place], [place] [address]VH: 04/06/2018 Secondary NOT GIVENUNK Mely Insurance:SELF PAY [facility] Number: Effective Repository Date:2018-04-06 02/08/2018 BERNICE P Primary Insurance:THE BERNICE Boone [id number] [facility] MAYHEWDOB: [facility] Number: [id number] [id number] Repository [address]Ucy: [phone]) Date:[id number] [phone] () [place] [address]HB: 02/08/2018 Secondary NOT GIVENUNK Mely Insurance:SELF PAY [facility] Number: Effective Repository Date:2018-02-08 12/30/2017 BERNICE Deanna Primary BERNICE Huerta [facility] OCTOBERHEWDOB: Insurance:HEALTH MAYHEWDOB: [facility] [id number] [facility] Number: [id number] Repository [address] [place] [address] [id number], [email or web address] Date:2017-12-30 [address]Mbz: BENNY.[facility] [id number] el: [phone]) Name:[id number] [place] (HP) [facility] [phone] (WP) (HP)Tel: [phone]) [place], [place] [phone] (HH) [phone]:
== END ==
PROVIDERS: Family Provider Family Medicine; PCP Family Medicine
DX: M05.9 Rheumatoid arthritis with rheumatoid factor, unspecified (principal); J84.9 Interstitial pulmonary disease, unspecified
CPT/HCPCS: 71250

== ENCOUNTER → 2018-09-14 10:13 | Outpatient (CLI) | payer OTHER, SELFPAY ==
--- NOTE | 2018-09-14 10:45 | RAD_ITS ---
STUDY: X-RAY - RIGHT SHOULDER REASON FOR EXAM: Male, 62 years old. Shoulder pain. TECHNIQUE: 4 view(s) of the shoulder. COMPARISON: None. FINDINGS: Normal glenohumeral articulation. Normal acromioclavicular joint. There is a small calcification superior to the acromion clavicular joint. Normal acromion. Normal humeral head and visualized proximal humerus. The soft tissue structures are unremarkable. Normal visualized pulmonary apex. RAD/Shoulder min 2 Views IMPRESSION: Mild degenerative changes of the acromioclavicular joint. Electronically Signed: Ralf Haney MD at 8:56 EDT Tel , Service support ,
--- NOTE | 2018-09-14 10:52 | RAD_ITS ---
STUDY: X-RAY - LEFT SHOULDER REASON FOR EXAM: Male, 62 years old. Shoulder pain. TECHNIQUE: 4 view(s) of the shoulder. COMPARISON: None. FINDINGS: Normal glenohumeral articulation. Normal acromioclavicular joint. Normal acromion. There is an old healed fracture of the mid third of the left clavicle. Normal humeral head and visualized proximal humerus. The soft tissue structures are unremarkable. Normal visualized pulmonary apex. RAD/Shoulder min 2 Views IMPRESSION: Old fracture of the left clavicle. Otherwise no demonstrated acute changes. Electronically Signed: Ralf Haney MD at 8:57 EDT Tel , Service support ,
--- NOTE | 2018-09-14 11:00 | RAD_ITS ---
STUDY: X-RAY - PELVIS AND BILATERAL HIPS REASON FOR EXAM: Male, 62 years old. Bilateral hip pain worse on the left side. TECHNIQUE: AP view of the pelvis.? 2 views of the right hip, and 2 views of the left hip were obtained. COMPARISON: None. FINDINGS: There is a non-specific bowel gas pattern. Normal visualized soft tissue structures. Normal bilateral iliac wings, sacroiliac joints and visualized sacrum. Normal bilateral superior and inferior pubic rami. Normal pubic symphysis. Normal bilateral ischial tuberosities. Sclerotic lesion in the left sacrum close to the sacroiliac joint which could be due to bone island. There are mild degenerative changes in the lower lumbar spine. Normal visualized right femoral head. Normal right acetabulum. There is mild articular joint space narrowing of the right hip. Normal visualized left femoral head. Normal left acetabulum. There is mild articular joint space narrowing of the left hip. RAD/Hips B/L min 2 views w/ Pelvis IMPRESSION: Mild narrowing of hip joints. Sclerotic lesion in the left sacrum probably due to bone island. Degenerative changes in the visualized lower lumbar spine. Electronically Signed: Ralf Haney MD at 8:53 EDT Tel , Service support ,
[2018-09-14 11:11] LABS: Absolute Lymphocyte Count 1.49 X10^3/ul (0.83-4.51); Absolute Neutrophil Count 3.3 X10^3/uL (2.0-7.7); Basophil# 0.03 X10^3/uL; Basophil% 0.5 % (0-1); Eosinophil# 0.28 X10^3/uL; Hematocrit 43.6 % (40-54); Hemoglobin 14.1 g/dl (13.0-16.5); Lymphocyte # 1.49 X10^3/ul (4.0); Lymphocyte % 26.4 % (19-41); Mean Corp Hgb Conc 32.3 g/gl (32-36); Mean Corpuscular Hgb 28.5 pg (27.0-32.0); Mean Corpuscular Volume 88.1 fL (80-94); Mean Platelet Vol. 9.9 fl (6.2-12.0); Monocyte# 0.59 X10^3/uL; Monocyte% 10.4 % (0-10); Neutrophil # 3.25 X10^3/uL (2.7-7.7); Neutrophil % 57.5 % (47-70); Platelet Count 175 K/mm3 (150-450); RBC Distribution Width SD 47.8 fl (35.1-43.9); Red Blood Count 4.95 M/mm3 (4.6-6.2); White Blood Count 5.7 K/mm3 (4.4-11.0)
[2018-09-14 11:13] LABS: POSITIVE COUNT NO; POSITIVE DIFFERENTIAL NO; POSITIVE MORPHOLOGY NO
[2018-09-14 11:37] LABS: AST(SGOT) 25 U/L (15-37); Alanine Aminotransfer ALT/SGPT 39 U/L (16-61); Albumin, Serum 3.6 g/dL (3.2-5.0); Alkaline Phosphatase 77 U/L (45-117); Bilirubin, Direct 0.18 mg/dL (0.00-0.30); Creatinine, Serum 0.96 mg/dL (0.70-1.30); EST Glomerular Filtration Rate 85 mL/min (>60); Est Glom Filt Rate - Afr Amer 102 mL/min (>60); Protein, Total 7.6 g/dL (6.4-8.2)
== END ==
PROVIDERS: Family Provider Family Medicine; PCP Family Medicine
DX: M25.519 Pain in unspecified shoulder (principal); M16.0 Bilateral primary osteoarthritis of hip; Z79.899 Other long term (current) drug therapy
CPT/HCPCS: 36415; 73030; 73521; 80076; 82565; 85025

== ENCOUNTER 2018-10-21 10:06 | Outpatient (RCR) | payer OTHER, SELFPAY ==
[2018-10-21 11:51] LABS: Absolute Lymphocyte Count 1.75 X10^3/ul (0.83-4.51); Basophil# 0.04 X10^3/uL; Basophil% 0.6 % (0-1); Eosinophil# 0.33 X10^3/uL; Eosinophils% 4.9 % (0-5); Hematocrit 44.2 % (40-54); Hemoglobin 14.6 g/dl (13.0-16.5); Lymphocyte # 1.75 X10^3/ul (4.0); Lymphocyte % 25.7 % (19-41); Mean Corpuscular Hgb 29.3 pg (27.0-32.0); Mean Corpuscular Volume 88.6 fL (80-94); Mean Platelet Vol. 10.5 fl (6.2-12.0); Monocyte# 0.66 X10^3/uL; Monocyte% 9.7 % (0-10); Neutrophil # 4.02 X10^3/uL (2.7-7.7); Neutrophil % 59.1 % (47-70); Platelet Count 170 K/mm3 (150-450); RBC Distribution Width CV 14.7 % (11.6-14.6); RBC Distribution Width SD 46.9 fl (35.1-43.9); Red Blood Count 4.99 M/mm3 (4.6-6.2); White Blood Count 6.8 K/mm3 (4.4-11.0)
[2018-10-21 11:52] LABS: POSITIVE COUNT NO; POSITIVE DIFFERENTIAL NO; POSITIVE MORPHOLOGY NO
[2018-10-21 12:19] LABS: AST(SGOT) 25 U/L (15-37); Alanine Aminotransfer ALT/SGPT 40 U/L (16-61); Albumin, Serum 3.7 g/dL (3.2-5.0); Alkaline Phosphatase 77 U/L (45-117); Bilirubin, Direct 0.17 mg/dL (0.00-0.30); EST Glomerular Filtration Rate 81 mL/min (>60); Est Glom Filt Rate - Afr Amer 98 mL/min (>60); Globulin 3.7 g/dL (2.2-4.2); Protein, Total 7.4 g/dL (6.4-8.2)
== END 2018-10-21 11:00 | disposition home or self-care (01) ==
LOC: LAB 10:06
PROVIDERS: Family Provider Family Medicine; PCP Family Medicine; Referring Provider Internal Medicine Rheumatology; Visit Provider Internal Medicine Rheumatology
DX: Z79.899 Other long term (current) drug therapy (principal)
CPT/HCPCS: 36415; 80076; 82565; 85025

== ENCOUNTER 2019-02-24 09:45 | Outpatient (RCR) | payer OTHER, SELFPAY ==
[2019-02-24 10:44] LABS: Absolute Lymphocyte Count 1.47 X10^3/uL (0.83-4.51); Absolute Neutrophil Count 3.6 X10^3/uL (2.0-7.7); Basophil# 0.06 X10^3/uL; Eosinophil# 0.24 X10^3/uL; Hematocrit 44.1 % (40-54); Hemoglobin 14.3 g/dL (13.0-16.5); Lymphocyte # 1.47 X10^3/ul (4.0); Lymphocyte % 24.5 % (19-41); Mean Corp Hgb Conc 32.4 g/dL (32-36); Mean Corpuscular Hgb 30.2 pg (27.0-32.0); Mean Corpuscular Volume 93.2 fL (80-94); Mean Platelet Vol. 10.1 fl (6.2-12.0); Monocyte# 0.59 X10^3/uL; Monocyte% 9.8 % (0-10); NRBC Flagged by Analyzer 0 % (0-5); Neutrophil # 3.62 X10^3/uL (2.7-7.7); Neutrophil % 60.5 % (47-70); Platelet Count 169 K/mm3 (150-450); RBC Distribution Width CV 13.1 % (11.6-14.6); RBC Distribution Width SD 44.2 fl (35.1-43.9); Red Blood Count 4.73 M/mm3 (4.6-6.2)
[2019-02-24 11:26] LABS: AST(SGOT) 29 U/L (15-37); Alanine Aminotransfer ALT/SGPT 50 U/L (16-61); Albumin, Serum 3.7 g/dL (3.2-5.0); Alkaline Phosphatase 74 U/L (45-117); Bilirubin, Direct 0.18 mg/dL (0.00-0.30); Creatinine, Serum 0.99 mg/dL (0.70-1.30); EST Glomerular Filtration Rate 82 mL/min (>60); Est Glom Filt Rate - Afr Amer 99 mL/min (>60); Globulin 3.8 g/dL (2.2-4.2); Protein, Total 7.5 g/dL (6.4-8.2)
== END 2019-02-24 13:00 | disposition home or self-care (01) ==
LOC: LAB 09:45
PROVIDERS: Family Provider Family Medicine; PCP Family Medicine; Referring Provider Internal Medicine Rheumatology; Visit Provider Internal Medicine Rheumatology
DX: Z79.899 Other long term (current) drug therapy (principal)
CPT/HCPCS: 36415; 80076; 82565; 85025

== ENCOUNTER → 2019-10-03 14:41 | Outpatient (CLI) | payer OTHER, SELFPAY ==
[2019-10-03 15:06] LABS: Bacteria 0 SEEN /hpf (None Seen); Mucous, Urine 0 SEEN /hpf (<or=2+); Red Blood Cells-Urine 0 SEEN /hpf (0-5); Squamous Epithelial Cells - UA 0 SEEN /hpf (0-5); White Blood Cells 0 SEEN /hpf (0-5)
[2019-10-03 15:40] LABS: Absolute Lymphocyte Count 1.78 X10^3/uL (0.83-4.51); Absolute Neutrophil Count 4.5 X10^3/uL (2.0-7.7); Basophil# 0.06 X10^3/uL; Basophil% 0.8 % (0-1); Color, Urine Yellow (Yellow); Eosinophil# 0.29 X10^3/uL; Eosinophils% 3.9 % (0-5); Glucose, Dipstick Normal (Normal); Hematocrit 44.2 % (40-54); Hemoglobin 14.1 g/dL (13.0-16.5); Ketone-Dipstick Negative (Negative); Leukocyte Esterase-Dipstick Negative /ul (Negative); Lymphocyte # 1.78 X10^3/ul (4.0); Mean Corp Hgb Conc 31.9 g/dL (32-36); Mean Corpuscular Hgb 29.4 pg (27.0-32.0); Mean Corpuscular Volume 92.3 fL (80-94); Mean Platelet Vol. 9.7 fl (6.2-12.0); Monocyte# 0.73 X10^3/uL; Monocyte% 9.9 % (0-10); NRBC Flagged by Analyzer 0 % (0-5); Neutrophil # 4.52 X10^3/uL (2.7-7.7); Nitrite-Dipstick Negative (Negative); Occult Blood-Urine Negative /ul (Negative); Platelet Count 183 K/mm3 (150-450); Protein-Dipstick Negative (Negative); RBC Distribution Width CV 13.2 % (11.6-14.6); RBC Distribution Width SD 44.5 fl (35.1-43.9); Red Blood Count 4.79 M/mm3 (4.6-6.2); Urine Bilirubin Dipstick Negative (Negative); Urine Clarity Clear (Clear); Urine Urobilinogen Normal (Normal); White Blood Count 7.4 K/mm3 (4.4-11.0)
[2019-10-03 15:55] LABS: Erythrocyte Sedimentation Rate 15 mm/hr (0-20)
[2019-10-03 16:11] LABS: AST(SGOT) 29 U/L (15-37); Alanine Aminotransfer ALT/SGPT 38 U/L (16-61); Albumin, Serum 3.9 g/dL (3.2-5.0); Alkaline Phosphatase 67 U/L (45-117); Bilirubin, Direct 0.17 mg/dL (0.00-0.30); CRP 7.58 mg/L (0.0-3.0); Creatinine, Serum 1.01 mg/dL (0.70-1.30); EST Glomerular Filtration Rate 80 mL/min (>60); Est Glom Filt Rate - Afr Amer 96 mL/min (>60); Globulin 3.5 g/dL (2.2-4.2); Protein, Total 7.4 g/dL (6.4-8.2)
[2019-10-05 10:59] LABS: Complement C3 126 mg/dL (82-167)
[2019-10-06 01:24] LABS: Anti-dsDNA Ab <1 IU/mL (0-9)
== END ==
PROVIDERS: Family Provider Family Medicine; PCP Family Medicine; Referring Provider Internal Medicine Rheumatology; Visit Provider Internal Medicine Rheumatology
DX: M05.9 Rheumatoid arthritis with rheumatoid factor, unspecified (principal); R76.0 Raised antibody titer; Z79.899 Other long term (current) drug therapy
CPT/HCPCS: 36415; 80076; 81001; 82565; 85025; 85652; 86140; 86160; 86225

== ENCOUNTER → 2019-11-30 09:57 | Outpatient (CLI) | payer OTHER, SELFPAY ==
[2019-11-30 10:19] LABS: Absolute Lymphocyte Count 1.64 X10^3/uL (0.83-4.51); Absolute Neutrophil Count 3.7 X10^3/uL (2.0-7.7); Basophil# 0.05 X10^3/uL; Basophil% 0.8 % (0-1); Eosinophil# 0.27 X10^3/uL; Eosinophils% 4.3 % (0-5); Hematocrit 44.5 % (40-54); Hemoglobin 14.4 g/dL (13.0-16.5); Lymphocyte # 1.64 X10^3/ul (4.0); Lymphocyte % 26.1 % (19-41); Mean Corp Hgb Conc 32.4 g/dL (32-36); Mean Corpuscular Hgb 30.4 pg (27.0-32.0); Mean Corpuscular Volume 93.9 fL (80-94); Mean Platelet Vol. 9.9 fl (6.2-12.0); Monocyte# 0.59 X10^3/uL; Monocyte% 9.4 % (0-10); NRBC Flagged by Analyzer 0 % (0-5); Neutrophil # 3.73 X10^3/uL (2.7-7.7); Neutrophil % 59.2 % (47-70); Platelet Count 181 K/mm3 (150-450); RBC Distribution Width CV 13.2 % (11.6-14.6); RBC Distribution Width SD 45.1 fl (35.1-43.9); Red Blood Count 4.74 M/mm3 (4.6-6.2); White Blood Count 6.3 K/mm3 (4.4-11.0)
[2019-11-30 10:26] LABS: Erythrocyte Sedimentation Rate 12 mm/hr (0-20)
[2019-11-30 11:03] LABS: AST(SGOT) 23 U/L (15-37); Alanine Aminotransfer ALT/SGPT 43 U/L (16-61); Albumin, Serum 3.7 g/dL (3.2-5.0); Alkaline Phosphatase 63 U/L (45-117); Bilirubin, Direct 0.21 mg/dL (0.00-0.30); CRP 7.58 mg/L (0.0-3.0); Creatinine, Serum 0.92 mg/dL (0.70-1.30); EST Glomerular Filtration Rate 88 mL/min (>60); Est Glom Filt Rate - Afr Amer 107 mL/min (>60); Globulin 3.6 g/dL (2.2-4.2); Protein, Total 7.3 g/dL (6.4-8.2)
== END ==
PROVIDERS: PCP Family Medicine; Referring Provider Internal Medicine Rheumatology; Visit Provider Internal Medicine Rheumatology
DX: M05.9 Rheumatoid arthritis with rheumatoid factor, unspecified (principal); Z79.899 Other long term (current) drug therapy
CPT/HCPCS: 36415; 80076; 82565; 85025; 85652; 86140

== ENCOUNTER → 2020-02-01 | Outpatient (CLI) | payer OTHER, SELFPAY | END | disposition home or self-care (01) | LOC: MTDU 17:44 | PROVIDERS: PCP Family Medicine; Referring Provider Family Medicine; Visit Provider Family Medicine | DX: Z00.00 Encounter for general adult medical examination without abnormal findings (principal) | CPT/HCPCS: 87635; 94799; C9803; U0003 ==

== ENCOUNTER → 2020-04-01 14:04 | Outpatient (CLI) | payer OTHER, SELFPAY ==
[2020-04-01 14:08] LABS: Bacteria 0 SEEN /hpf (None Seen); Mucous, Urine 0 SEEN /hpf (<or=2+); Red Blood Cells-Urine 0 SEEN /hpf (0-5); Squamous Epithelial Cells - UA 0 SEEN /hpf (0-5); White Blood Cells 0 SEEN /hpf (0-5)
[2020-04-01 14:41] LABS: Absolute Lymphocyte Count 1.67 X10^3/uL (0.83-4.51); Absolute Neutrophil Count 4.8 X10^3/uL (2.0-7.7); Basophil# 0.05 X10^3/uL; Basophil% 0.7 % (0-1); Eosinophil# 0.31 X10^3/uL; Eosinophils% 4.3 % (0-5); Hematocrit 44.7 % (40-54); Hemoglobin 14.3 g/dL (13.0-16.5); Lymphocyte # 1.67 X10^3/ul (4.0); Lymphocyte % 22.9 % (19-41); Mean Corpuscular Hgb 30.7 pg (27.0-32.0); Mean Corpuscular Volume 95.9 fL (80-94); Mean Platelet Vol. 10.2 fl (6.2-12.0); Monocyte# 0.44 X10^3/uL; NRBC Flagged by Analyzer 0 % (0-5); Neutrophil # 4.79 X10^3/uL (2.7-7.7); Neutrophil % 65.8 % (47-70); Platelet Count 171 K/mm3 (150-450); RBC Distribution Width CV 13.5 % (11.6-14.6); RBC Distribution Width SD 47.5 fl (35.1-43.9); Red Blood Count 4.66 M/mm3 (4.6-6.2); White Blood Count 7.3 K/mm3 (4.4-11.0)
[2020-04-01 14:53] LABS: Color, Urine Yellow (Yellow); Glucose, Dipstick Normal (Normal); Ketone-Dipstick Negative (Negative); Leukocyte Esterase-Dipstick Negative /ul (Negative); Nitrite-Dipstick Negative (Negative); Occult Blood-Urine Negative /ul (Negative); Protein-Dipstick Negative (Negative); Urine Bilirubin Dipstick Negative (Negative); Urine Clarity Clear (Clear); Urine Urobilinogen Normal (Normal); Urine pH 6.5 (5.0 - 8.0)
[2020-04-01 14:55] LABS: Erythrocyte Sedimentation Rate 12 mm/hr (0-20)
[2020-04-01 15:09] LABS: AST(SGOT) 24 U/L (15-37); Alanine Aminotransfer ALT/SGPT 42 U/L (16-61); Albumin, Serum 3.7 g/dL (3.2-5.0); Alkaline Phosphatase 70 U/L (45-117); Bilirubin, Direct 0.21 mg/dL (0.00-0.30); CRP 7.92 mg/L (0.0-3.0); Creatinine, Serum 1.07 mg/dL (0.70-1.30); EST Glomerular Filtration Rate 74 mL/min (>60); Est Glom Filt Rate - Afr Amer 90 mL/min (>60); Globulin 3.6 g/dL (2.2-4.2); Protein, Total 7.3 g/dL (6.4-8.2)
[2020-04-03 12:21] LABS: Complement C3 140 mg/dL (82-167)
[2020-04-03 14:09] LABS: RNP Ab 0.2 AI (0.0-0.9); Smith Ab <0.2 AI (0.0-0.9)
[2020-04-03 15:11] LABS: ANTINUCLEAR ANTIBODIES DIRECT Positive (Negative); Anti-dsDNA Ab <1 IU/mL (0-9)
== END ==
PROVIDERS: PCP Family Medicine; Referring Provider Internal Medicine Rheumatology; Visit Provider Internal Medicine Rheumatology
DX: R79.82 Elevated C-reactive protein (CRP) (principal); R76.0 Raised antibody titer; Z79.899 Other long term (current) drug therapy
CPT/HCPCS: 36415; 80076; 81001; 82565; 85025; 85652; 86038; 86140; 86160; 86225; 86235

== ENCOUNTER → 2023-01-28 | Outpatient (CLI) | payer MEDICARE, OTHER, SELFPAY ==
--- NOTE | 2023-01-28 13:38 | MRI_ITS ---
STUDY: MR PELVIS WITH AND WITHOUT CONTRAST (PROSTATE) REASON FOR EXAM: Male, 67 years old. Elevated PSA TECHNIQUE: Standardized multiparametric prostate MRI with T1, T2, DWI/ADC sequences were obtained in 3 orthogonal planes, and dynamic contrast enhancement sequences. COMPARISON: None. FINDINGS: The prostate volume measures 109 mm3. The contours of the prostate gland are lobulated. There is mass effect on the bladder base. The transition zone is heterogenous. PI-RADS DWI score 3 - Focal mildly hypointense on ADC and isointense/mildly hyperintense on high b-value DWI. PI-RADS T2W score 3 - Heterogeneous signal intensity with obscured margins. Contrast enhancement no early or contemporaneous enhancement; or diffuse multifocal enhancement NOT corresponding to a focal finding on T2W and/or DWI or focal ehancement responding to a lesion demonstrating features of BPH onT2WI (including features of extruded BPH in the PZ). The peripheral zone is heterogenous. PI-RADS DWI score 2 - Linear/wedge shaped hypointense on ADC and/or linear/wedge shaped hyperintense on high b-value DWI. PI-RADS T2W score 2 - Linear, wedge-shaped, or diffuse mild hypointensity, usually with indistinct margin. Contrast enhancement no early or contemporaneous enhancement; or diffuse multifocal enhancement NOT corresponding to a focal finding on T2W and/or DWI or focal enhancement responding to a lesion demonstrating features of BPH onT2WI (including features of extruded BPH in the PZ). The seminal vesicles demonstrate normal margins and T2 signal pattern. No mass lesion or invasion depicted. The rectoprostatic angles are normal. Urinary bladder is normal without wall thickening. The vascular structures of the are normal. The visualized hollow viscus structures are normal. No bone marrow edema or mass lesion depicted. MRI/Pelvis W/WO Contrast IMPRESSION: 1. PIRADS v2.1 2019 -- 3 - Intermediate (clinically significant cancer is equivocal). Electronically Signed: Baudilio Bai (Brooks), at 16:12 EDT ,
[2023-01-28 14:16] LABS: CREATININE FINGERSTICK 1.1 mg/dL (0.70-1.30); EGFR FINGERSTICK > 60.0000 mL/min (>60)
== END | disposition home or self-care (01) ==
LOC: MRI 13:20
PROVIDERS: PCP Nurse Practitioner Primary Care; Referring Provider Urology; Visit Provider Urology
DX: R97.20 Elevated prostate specific antigen [PSA] (principal)
CPT/HCPCS: 72197; A9575

== ENCOUNTER → 2023-08-05 | Outpatient (CLI) | payer MEDICARE, OTHER, SELFPAY ==
[2023-08-05 11:38] LABS: PSA,Total- Diagnostic 4.12 ng/mL (0.0-4.0)
== END | disposition home or self-care (01) ==
LOC: LAB 10:17
PROVIDERS: PCP Nurse Practitioner Primary Care; Referring Provider Nurse Practitioner; Visit Provider Nurse Practitioner
DX: R97.20 Elevated prostate specific antigen [PSA] (principal)
CPT/HCPCS: 36415; 84153